=== PATIENT | female | born 1985 | race Caucasian/White ===

== ENCOUNTER 2018-08-03 20:43 | Emergency (ER) | payer OTHER ==
[~2018-08-03] VITALS: Ht 172.7 cm; Wt 126.1 kg
--- NOTE | ~2018-08-03 | EKG ---
[place], [place] ELECTROCARDIOGRAM REPORT NAME: DAMIEN RANDHAWA UNIT #: [id number] ROOM: DOCTOR: EPIPHANY DRAFT REPORT BIRTHDATE: [birth year] [facility] Test Date: 2018-08-03 Test Time: 21:30:08 Pat Name: DAMIEN RANDHAWA Department: Room: Gender: F [employer] Consultant: JED : 1985 Requested By: MARLENE MESA DNP Order Number: [id number] Reading MD: Jacob Diaz MD Measurements Intervals [place] Rate: 84 P: 59 [place]: 132 QRS: 13 QRSD: 91 T: 2 QT: 372 QTc: 440 Interpretive Statements Sinus rhythm Nonspecific ST T changes Electronically Signed On 08-04-2018 8:30:50 PDT by Jacob Diaz MD CM:EKGRPT:ELECTROCARDIOGRAM REPORT MARLENE MESA DNP EPIPHANY DRAFT REPORT MARLENE MESA DNP
[2018-08-03 21:32] LABS: BILIRUBIN NEGATIVE (NEGATIVE); BLOOD NEGATIVE (NEGATIVE); CLARITY CLEAR (CLEAR); COLOR YELLOW (YELLOW); GLUCOSE NEGATIVE (NEGATIVE); KETONE NEGATIVE (NEGATIVE); LEUKO ESTERASE TRACE (NEGATIVE); NITRITE NEGATIVE (NEGATIVE); SPECIFIC GRAVITY <= 1.005 (1.005-1.030); UROBILINOGEN 0.2 E.U./dl (0.2-1.0)
[2018-08-03 21:38] LABS: BACTERIA 3+
[2018-08-03 21:39] LABS: EPITHELIAL CELLS 31-40
[2018-08-03 21:41] LABS: URINE AMPHETAMINES < 1000 (1000ng/ml); URINE BARBITURATES < 200 (200ng/ml); URINE BENZODIAZEPINES > 200 (200ng/ml); URINE CANNABINOIDS (THC) < 50 (50ng/ml); URINE COCAINE > 300 (300ng/ml); URINE METHADONE > 300 (300ng/ml); URINE OPIATES < 300 (300ng/ml)
[2018-08-03 21:45] LABS: URINE PHENCYCLIDINE < 25 (25ng/ml)
[2018-08-03 21:47] LABS: BASO % 0.3 % (0.0-1.0); EOS # 0.3 10*3/uL (0.0-0.4); EOS % 2.5 % (1.0-4.0); HEMATOCRIT 34.4 % (37.0-47.0); HEMOGLOBIN 11.5 g/dl (12.0-16.0); LYMPH # 2.3 10*3/uL (1.3-4.4); LYMPH % 19.2 % (27.0-41.0); MEAN CELL VOLUME 93.7 fl (81.0-99.0); MEAN CORPUSCULAR HGB 31.3 pg (27.0-31.0); MEAN CORPUSCULAR HGB CONC 33.4 g/dl (33.0-37.0); MEAN PLATELET VOLUME 9.3 fl (9.6-12.3); MONO # 0.6 10*3/uL (0.1-1.0); NEUT # 8.7 10*3/uL (2.3-7.9); NEUT % 72.5 % (47.0-73.0); PLATELET COUNT AUTOMATED 198 10*3/uL (130-400); RED BLOOD COUNT 3.67 10*6/uL (4.10-5.10); RED CELL DISTRI WIDTH 13.8 % (0-14.5)
[2018-08-03 22:04] LABS: ALBUMIN 3.2 gm/dl (3.1-4.5); ALKALINE PHOSPHATASE 90 U/L (45-117); BUN 6 mg/dl (7-24); CHLORIDE 106 mmol/L (98-107); CREATININE 0.76 mg/dL (0.55-1.02); POTASSIUM 3.9 mmol/L (3.5-5.1); SGOT/AST 23 IU/L (3-35); SGPT/ALT 24 U/L (12-78); SODIUM 141 mmol/L (136-145); TOTAL PROTEIN 7.3 gm/dL (6.4-8.2)
[2018-08-03 22:05] LABS: ACETAMINOPHEN (TYLENOL) < 5.0 ug/ml (10-30); TROPONIN I < 0.015 ng/ml (<0.045)
== END 2018-08-04 11:13 | disposition home or self-care (01) ==
LOC: ED 20:43
PROVIDERS: Nurse Practitioner Family
DX: F43.20 Adjustment disorder, unspecified (principal); F10.129 Alcohol abuse with intoxication, unspecified; F41.9 Anxiety disorder, unspecified; F32.9 Major depressive disorder, single episode, unspecified

== ENCOUNTER 2018-12-11 03:27 | Emergency (ER) | payer OTHER ==
[~2018-12-11] VITALS: Ht 170.1 cm; Wt 129.3 kg
[2019-03-12] MEDS ORDERED: ROBAXIN500 M1 PO (12:30)
== END 2018-12-11 05:34 | disposition home or self-care (01) ==
LOC: ED 03:27
DX: S16.1XXA Strain of muscle, fascia and tendon at neck level, initial encounter (principal); S09.90XA Unspecified injury of head, initial encounter; M25.562 Pain in left knee; Z91.013 Allergy to seafood; Y04.2XXA Assault by strike against or bumped into by another person, initial encounter; Y93.89 Activity, other specified; Y92.59 Other trade areas as the place of occurrence of the external cause; Y99.8 Other external cause status

== ENCOUNTER 2019-08-22 21:59 | Emergency (ER) | payer SELFPAY ==
[~2019-08-22] VITALS: Ht 172.7 cm; Wt 108.9 kg
--- NOTE | ~2019-08-22 | EKG ---
[place], [place] ELECTROCARDIOGRAM REPORT NAME: DAMIEN RANDHAWA UNIT #: [id number] ROOM: DOCTOR: [facility] DRAFT REPORT BIRTHDATE: [birth year] [facility] Test Date: 2019-08-22 Test Time: 22:51:55 Pat Name: DAMIEN RANDHAWA Department: Room: Gender: F [employer] Maker: : 1985 Requested By: MANISH SMITH Order Number: [id number] Reading MD: Measurements Intervals [place] Rate: 107 P: 23 [place]: 124 QRS: -4 QRSD: 91 T: 10 QT: 346 QTc: 462 Interpretive Statements Sinus tachycardia Borderline T abnormalities, anterior leads Compared to ECG 08/03/2018 21:30:08 T-wave abnormality now present Sinus rhythm no longer present CM:EKGRPT:ELECTROCARDIOGRAM REPORT 51 MANISH GUZMAN DRAFT REPORT MANISH SMITH DO
[~2019-08-22 21:59] MED LIST: ROBAXIN500 M1 PO
[2019-08-22] MEDS ORDERED: ATARAX,VISTARIL50 MG PO (22:04)
[2019-08-22] MEDS ORDERED: VENLAFAXINE HY150 M2 PO (22:04)
[2019-08-22 22:51] LABS: BASO # 0.1 10*3/uL (0.0-0.1); BASO % 0.5 % (0.0-1.0); EOS # 0.1 10*3/uL (0.0-0.4); EOS % 0.9 % (1.0-4.0); LYMPH # 3.7 10*3/uL (1.3-4.4); LYMPH % 35.5 % (27.0-41.0); MEAN CELL VOLUME 90.5 fl (81.0-99.0); MEAN CORPUSCULAR HGB 30.9 pg (27.0-31.0); MEAN CORPUSCULAR HGB CONC 34.1 g/dl (33.0-37.0); MEAN PLATELET VOLUME 8.9 fl (9.6-12.3); MONO # 0.6 10*3/uL (0.1-1.0); MONO % 5.4 % (3.0-9.0); NEUT # 5.9 10*3/uL (2.3-7.9); NEUT % 57.1 % (47.0-73.0); PLATELET COUNT AUTOMATED 243 10*3/uL (130-400); RED BLOOD COUNT 4.53 10*6/uL (4.10-5.10); RED CELL DISTRI WIDTH 11.9 % (0-14.5); WHITE BLOOD COUNT 10.3 10*3/uL (4.8-10.8)
[2019-08-22 23:06] LABS: ALBUMIN 3.4 gm/dl (3.1-4.5); ALKALINE PHOSPHATASE 73 U/L (45-117); BUN 7 mg/dl (7-24); CHLORIDE 106 mmol/L (98-107); CREATININE 0.66 mg/dL (0.55-1.02); POTASSIUM 3.7 mmol/L (3.5-5.1); SGOT/AST 25 IU/L (3-35); SGPT/ALT 30 U/L (12-78); SODIUM 139 mmol/L (136-145); TOTAL PROTEIN 7.7 gm/dL (6.4-8.2)
[2019-08-22 23:08] LABS: ACETAMINOPHEN (TYLENOL) < 5.0 ug/ml (10-30)
[2019-08-22 23:26] LABS: BILIRUBIN NEGATIVE (NEGATIVE); BLOOD NEGATIVE (NEGATIVE); CLARITY CLEAR (CLEAR); COLOR YELLOW (YELLOW); GLUCOSE NEGATIVE (NEGATIVE); KETONE NEGATIVE (NEGATIVE); LEUKO ESTERASE NEGATIVE (NEGATIVE); NITRITE NEGATIVE (NEGATIVE); PH 6.5 (5.0-9.0); SPECIFIC GRAVITY <= 1.005 (1.005-1.030); UROBILINOGEN 0.2 E.U./dl (0.2-1.0)
[2019-08-22 23:35] LABS: URINE AMPHETAMINES < 1000 (1000ng/ml); URINE BARBITURATES < 200 (200ng/ml); URINE BENZODIAZEPINES < 200 (200ng/ml); URINE CANNABINOIDS (THC) < 50 (50ng/ml); URINE COCAINE < 300 (300ng/ml); URINE METHADONE < 300 (300ng/ml); URINE OPIATES < 300 (300ng/ml); URINE PHENCYCLIDINE < 25 (25ng/ml)
[2019-08-22 23:39] LABS: WBC 0-2 wbc/hpf (0-5)
== END 2019-08-22 23:45 | disposition left against medical advice (07) ==
LOC: ED 21:59
PROVIDERS: Emergency Medicine
DX: F32.9 Major depressive disorder, single episode, unspecified (principal); F41.9 Anxiety disorder, unspecified; F17.200 Nicotine dependence, unspecified, uncomplicated; Z91.013 Allergy to seafood; Z79.899 Other long term (current) drug therapy

== ENCOUNTER 2019-08-23 | Emergency (ER) | payer SELFPAY ==
[~2019-08-23] VITALS: Ht 172.7 cm; Wt 113.4 kg
[~2019-08-23] MED LIST changes: +ATARAX,VISTARIL50 MG PO; +VENLAFAXINE HY150 M2 PO
[2019-08-23 00:40] LABS: BILIRUBIN NEGATIVE (NEGATIVE); BLOOD NEGATIVE (NEGATIVE); CLARITY CLEAR (CLEAR); COLOR YELLOW (YELLOW); GLUCOSE NEGATIVE (NEGATIVE); KETONE NEGATIVE (NEGATIVE); LEUKO ESTERASE NEGATIVE (NEGATIVE); NITRITE NEGATIVE (NEGATIVE); SPECIFIC GRAVITY <= 1.005 (1.005-1.030); UROBILINOGEN 0.2 E.U./dl (0.2-1.0)
[2019-08-23 00:49] LABS: WBC 0-2 wbc/hpf (0-5)
[2019-08-23 00:52] LABS: URINE AMPHETAMINES < 1000 (1000ng/ml); URINE BARBITURATES < 200 (200ng/ml); URINE BENZODIAZEPINES < 200 (200ng/ml); URINE CANNABINOIDS (THC) < 50 (50ng/ml); URINE COCAINE < 300 (300ng/ml); URINE METHADONE < 300 (300ng/ml); URINE OPIATES < 300 (300ng/ml)
[2019-08-23 00:54] LABS: URINE PHENCYCLIDINE < 25 (25ng/ml)
[2019-08-23 13:53] LABS: BASO # 0.1 10*3/uL (0.0-0.1); BASO % 0.5 % (0.0-1.0); EOS # 0.1 10*3/uL (0.0-0.4); EOS % 0.9 % (1.0-4.0); HEMATOCRIT 40.5 % (37.0-47.0); HEMOGLOBIN 13.5 g/dl (12.0-16.0); LYMPH # 2.9 10*3/uL (1.3-4.4); LYMPH % 25.4 % (27.0-41.0); MEAN CELL VOLUME 91.6 fl (81.0-99.0); MEAN CORPUSCULAR HGB 30.5 pg (27.0-31.0); MEAN CORPUSCULAR HGB CONC 33.3 g/dl (33.0-37.0); MEAN PLATELET VOLUME 8.7 fl (9.6-12.3); MONO # 0.8 10*3/uL (0.1-1.0); MONO % 7.2 % (3.0-9.0); NEUT # 7.4 10*3/uL (2.3-7.9); NEUT % 65.6 % (47.0-73.0); PLATELET COUNT AUTOMATED 254 10*3/uL (130-400); RED BLOOD COUNT 4.42 10*6/uL (4.10-5.10); WHITE BLOOD COUNT 11.3 10*3/uL (4.8-10.8)
[2019-08-23 14:09] LABS: ALBUMIN 3.3 gm/dl (3.1-4.5); ALKALINE PHOSPHATASE 73 U/L (45-117); BUN 11 mg/dl (7-24); CHLORIDE 105 mmol/L (98-107); CREATININE 0.88 mg/dL (0.55-1.02); POTASSIUM 3.8 mmol/L (3.5-5.1); SGOT/AST 20 IU/L (3-35); SGPT/ALT 28 U/L (12-78); SODIUM 138 mmol/L (136-145); TOTAL PROTEIN 7.3 gm/dL (6.4-8.2)
[2019-08-23 14:12] LABS: ACETAMINOPHEN (TYLENOL) < 5.0 ug/ml (10-30)
== END 2019-08-25 09:48 | disposition home health service (06) ==
LOC: ED
PROVIDERS: Emergency Medicine
DX: F32.9 Major depressive disorder, single episode, unspecified (principal); F10.920 Alcohol use, unspecified with intoxication, uncomplicated; Z91.013 Allergy to seafood; Z79.899 Other long term (current) drug therapy